=== PATIENT | female | born 1970 | race Caucasian/White ===

== ENCOUNTER 2016-06-18 09:55 | Day surgery (SDC) | payer BC ==
--- NOTE | ~2016-06-18 | EGD ---
EGD REPORT [facility] [address] [place]. [address] NAME: BOBBI MCMILLAN : [birth year] STATUS : REG [facility] [place] PAT#: [id number] AGE: 46 ADM/REG DATE : 06/18/16 MR#: [id number] REPORT SERV DATE: 06/18/16 DICTATED BY: DIRK MCMANUS DATE: 06/18/16 REPORT STATUS : Draft [facility]: [facility] DATE: 06/18/16 [facility] Patient Name: Bobbi Mcmillan Date of : 1970 Attending MD: DIRK MCMANUS MD Procedure Date No Time: 06/18/2016 Procedure: Colonoscopy Indications: Abdominal pain in the left lower quadrant, FH of Colon Cancer - multiple second-degree relatives, Abnormal CT of the GI tract, Constipation Referring MD: RADHA OCHOA Medicines: as per anesthesia Complications: No immediate complications. Procedure: Pre-Anesthesia Assessment: - ASA Grade Assessment: I - A normal, healthy patient. After I obtained informed consent, the scope was passed under direct vision. Throughout the procedure, the patient's blood pressure, pulse, and oxygen saturations were monitored continuously. The PCF [id number] was introduced through the anus and advanced to the cecum, identified by appendiceal orifice and ileocecal valve. The colonoscopy was performed without difficulty. The patient tolerated the procedure. The quality of the bowel preparation was adequate to identify polyps. Findings: The perianal and digital rectal examinations were normal. Internal hemorrhoids were found during endoscopy and were mild. Impression: - Internal hemorrhoids. Recommendation: - Repeat colonoscopy in 5 years for surveillance. Procedure Code(s): --- Professional --- 76615, Colonoscopy, flexible, proximal to splenic flexure; diagnostic, with or without collection of specimen(s) by brushing or washing, with or without colon decompression (separate procedure) Diagnosis Code(s): --- Professional --- K64.8, Other hemorrhoids R10.32, Left lower quadrant pain Z80.0, Family history of malignant neoplasm of digestive organs R93.3, Abnormal findings on diagnostic imaging of other EGD REPORT [facility] [address] [place] [place] [address] NAME: BOBBI MCMILLAN : [birth year] STATUS : REG [facility] [place] PAT#: [id number] AGE: 46 ADM/REG DATE : 06/18/16 MR#: [id number] REPORT SERV DATE: 06/18/16 DICTATED BY: DIRK MCMANUS. DATE: 06/18/16 REPORT STATUS : Draft TRANSCRIBED BY: [employer] DATE: 06/18/16 parts of digestive tract K59.00, Constipation, unspecified CPT copyright 2013 [employer]. All rights reserved. The codes documented in this report are preliminary and upon estimator printing review may be revised to meet current compliance requirements. DIRK MCMANUS MD 06/18/2016 1:30 PM This report has been signed electronically. Number of Addenda: 0 Note Initiated On: 06/18/2016 12:59 PM Scope Withdrawal Time 0 hours 8 minutes 50 seconds [id number] [place] [id number]
[~2016-06-18 09:55] MED LIST: *DENIES; EXCEDRIN EXTRA1 EACH PO; PT DENIES HOME MEDS
== END 2016-06-18 23:59 | disposition home or self-care (01) ==
LOC: DMU 09:55
PROVIDERS: Internal Medicine Gastroenterology
PROC: 0DJD8ZZ Inspection of Lower Intestinal Tract, Via Natural or Artificial Opening Endoscopic (ICD-10-PCS; principal; 2016-06-18 11:30)
DX: K64.8 Other hemorrhoids (principal); Z80.0 Family history of malignant neoplasm of digestive organs
CPT/HCPCS: 84703; J2405